=== PATIENT | female | born 1980 | race Hispanic/Latino ===

== ENCOUNTER → 2023-05-07 09:44 | Outpatient (REF) | payer OTHER, SELFPAY ==
[2023-05-07 13:39] LABS: Free T4 1.23 ng/dl (0.78-2.19)
[2023-05-07 13:53] LABS: TSH 6.97 uIU/ml (0.47-4.68)
[2023-05-07 14:06] LABS: Glycohemoglobin (HgbA1c) 6.1 % (4.0-5.6)
== END ==
LOC: REG 09:44
PROVIDERS: ATTENDING PHYSICIAN Nurse Practitioner Adult Health
DX: E03.9 Hypothyroidism, unspecified (principal); R73.03 Prediabetes
CPT/HCPCS: 36415; 83036; 84439; 84443

== ENCOUNTER → 2023-10-03 07:10 | Outpatient (REF) | payer OTHER, SELFPAY ==
[2023-10-03 08:20] LABS: Free T4 1.08 ng/dl (0.78-2.19)
[2023-10-03 08:34] LABS: TSH 6.09 uIU/ml (0.47-4.68)
== END ==
LOC: CLINIC 07:10
PROVIDERS: ATTENDING PHYSICIAN Nurse Practitioner Adult Health
DX: E03.9 Hypothyroidism, unspecified (principal)
CPT/HCPCS: 36415; 84439; 84443

== ENCOUNTER → 2023-10-09 09:00 | Outpatient (REF) | payer OTHER, SELFPAY ==
[2023-10-21 02:50] LABS: HPV, High Risk Not Detected; HPV, High Risk Source Cervical
== END ==
LOC: CLINIC 09:00
PROVIDERS: ATTENDING PHYSICIAN Nurse Practitioner Adult Health
DX: Z12.4 Encounter for screening for malignant neoplasm of cervix (principal)
CPT/HCPCS: 87624

== ENCOUNTER → 2024-01-01 10:07 | Outpatient (REF) | payer OTHER, SELFPAY ==
[2024-01-01 11:38] LABS: Free T4 1.38 ng/dl (0.78-2.19)
[2024-01-01 11:52] LABS: TSH 4.09 uIU/ml (0.47-4.68)
== END ==
LOC: CLINIC 10:07
PROVIDERS: ATTENDING PHYSICIAN Nurse Practitioner Adult Health
DX: E03.9 Hypothyroidism, unspecified (principal)
CPT/HCPCS: 36415; 84439; 84443

== ENCOUNTER → 2024-04-28 09:56 | Outpatient (REF) | payer OTHER, SELFPAY ==
[2024-04-28 10:44] LABS: Hematocrit 38.3 % (37.0-47.0); Hemoglobin 12.2 g/dL (12.0-16.0); Mean Corp Hgb Conc. 31.9 g/dL (33.0-37.0); Mean Corpuscular Hgb 26.2 pg (27.0-31.0); Mean Corpuscular Volume 82.2 fL (81.0-99.0); Platelet Count 269 10^3/uL (130-400); Red Blood Cell Count 4.66 10^6/uL (4.20-5.40)
[2024-04-28 11:22] LABS: ALT (SGPT) 29 U/L (0-35); AST (SGOT) 27 U/L (14-36); Albumin 4.2 g/dl (3.5-5.0); Alkaline Phosphatase 77 U/L (38-126); Blood Urea Nitrogen 13 mg/dl (7-17); Calcium 9.3 mg/dl (8.4-10.2); Carbon Dioxide 29 mmol/L (22-30); Chloride 100 mmol/L (98-107); Glucose 114 mg/dl (70-99); HDL Cholesterol 36 mg/dl; LDL Cholesterol, Calculated 105 mg/dl; Potassium 4.5 mmol/L (3.5-5.1); Sodium 137 mmol/L (135-145); Total Bilirubin 0.6 mg/dl (0.2-1.3); Total Cholesterol 190 mg/dl (50-199); Triglyceride 249 mg/dl (10-149); Very Low Density Lipoprotein 49 mg/dl (0-30); eGFR > 60.00
[2024-04-28 11:58] LABS: Free T4 1.41 ng/dl (0.78-2.19)
[2024-04-28 12:13] LABS: TSH 4.89 uIU/ml (0.47-4.68)
[2024-04-28 12:32] LABS: Glycohemoglobin (HgbA1c) 6.4 % (4.0-5.6)
== END ==
LOC: CLINIC 09:56
PROVIDERS: ATTENDING PHYSICIAN Nurse Practitioner Adult Health
DX: E03.9 Hypothyroidism, unspecified (principal); R73.03 Prediabetes
CPT/HCPCS: 80053; 80061; 83036; 84439; 84443; 85027

== ENCOUNTER → 2024-05-22 13:03 | Outpatient (REF) | payer SELFPAY | LOC: WDC 13:03 | PROVIDERS: ATTENDING PHYSICIAN Nurse Practitioner Adult Health | DX: Z12.31 Encounter for screening mammogram for malignant neoplasm of breast (principal) | CPT/HCPCS: 77063; 77067 ==

== ENCOUNTER → 2024-07-28 09:32 | Outpatient (REF) | payer OTHER, SELFPAY ==
[2024-07-28 10:42] LABS: ALT (SGPT) 23 U/L (0-35); AST (SGOT) 22 U/L (14-36); Albumin 4.2 g/dl (3.5-5.0); Alkaline Phosphatase 72 U/L (38-126); Blood Urea Nitrogen 14 mg/dl (7-17); Calcium 9.2 mg/dl (8.4-10.2); Carbon Dioxide 27 mmol/L (22-30); Chloride 106 mmol/L (98-107); Glucose 100 mg/dl (70-99); Potassium 4.5 mmol/L (3.5-5.1); Sodium 138 mmol/L (135-145); Total Bilirubin 0.7 mg/dl (0.2-1.3); Total Protein 7.2 g/dl (6.3-8.2); eGFR > 60.00
[2024-07-28 11:00] LABS: Free T4 1.35 ng/dl (0.78-2.19); Vitamin D, 25-OH*** 35.2 ng/mL (30-80)
[2024-07-28 11:14] LABS: TSH 4.28 uIU/ml (0.47-4.68)
[2024-07-28 12:32] LABS: Glycohemoglobin (HgbA1c) 5.8 % (4.0-5.6)
== END ==
LOC: OHS 09:32
PROVIDERS: ATTENDING PHYSICIAN Nurse Practitioner Adult Health
DX: E03.9 Hypothyroidism, unspecified (principal); R73.03 Prediabetes; E55.9 Vitamin D deficiency, unspecified
CPT/HCPCS: 36415; 80053; 82306; 83036; 84439; 84443

== ENCOUNTER → 2024-11-04 09:49 | Outpatient (REF) | payer OTHER, SELFPAY ==
[2024-11-04 11:50] LABS: Glycohemoglobin (HgbA1c) 5.7 % (4.0-5.6)
[2024-11-04 12:26] LABS: TSH 3.94 uIU/ml (0.47-4.68)
== END ==
LOC: REG 09:49
PROVIDERS: ATTENDING PHYSICIAN Nurse Practitioner Adult Health
DX: R73.03 Prediabetes (principal); E03.9 Hypothyroidism, unspecified
CPT/HCPCS: 36415; 83036; 84439; 84443